=== PATIENT | female | born 1980 | race Caucasian/White ===

== ENCOUNTER 2016-10-01 13:44 | Inpatient (IN) | payer BC ==
[~2016-10-01] VITALS: Ht 165.1 cm; Wt 100.8 kg
[2016-10-01] MEDS ORDERED: OXYC-57 PO (14:20)
[2016-10-01] MEDS ORDERED: ONDANSETRON INJ 2 MG/ML 2 ML VIAL IV STA (14:20)
[2016-10-01] MEDS ORDERED: SODIUM CHLORIDE 0.9% 1000ML 1,000 ML IV STA ×2 (14:20)
[2016-10-01] MEDS ORDERED: MoRPHine SULFATE 4 MG/ML 1 ML CARP\\VIAL IV PRN (14:30)
[2016-10-01 14:57] LABS: BASO % 0.6 %; BASO ABS # 0.06 K/uL (0-0.2); COMPLETE YES; HEMATOCRIT 42.9 % (37-47); IG% 0.5 %; LYMPH % 26.9 %; LYMPH ABS # 2.51 K/uL (1.2-3.4); MEAN CELL VOLUME 87.7 fL (80-100); MEAN CORPUSCULAR HEMOGLOBIN 30.1 pg (25-34); MEAN CORPUSCULAR HGB CONC 34.3 g/dl (32-36); MEAN PLATELET VOLUME 9.6 fL (7.4-10.4); MONO % 5.3 %; NEUT % 64.7 %; PLATELET COUNT 326 K/uL (130-400); RED BLOOD COUNT 4.89 M/uL (4.2-5.4); WHITE BLOOD COUNT 9.32 K/uL (4.8-10.8)
--- NOTE | 2016-10-01 15:00 | DIAGNOSTIC IMAGING REPORT ---
CHEST ONE VIEW PORTABLE CLINICAL HISTORY: ABDOMINAL PAIN/GI pain COMPARISON STUDY: 04/01/2016 FINDINGS: The bones soft tissues and hemidiaphragms are normal. The cardiomediastinal silhouette is normal. The lungs are clear. The pulmonary vasculature is normal. IMPRESSION: Negative chest. Electronically signed by: Domo Peck M.D. 10/01/2016 2:59 PM Dictated Date/Time: 10/01/2016 2:59 PM
--- NOTE | 2016-10-01 15:01 | DIAGNOSTIC IMAGING REPORT ---
KUB CLINICAL HISTORY: ABDOMINAL PAIN/GI pain COMPARISON STUDY: No previous studies for comparison. FINDINGS: The soft tissues, psoas shadows, renal outlines and intestinal gas pattern appear normal. There is no evidence for bowel obstruction. No abnormal abdominal calcifications are seen. IMPRESSION: Normal study. Electronically signed by: Domo Peck M.D. 10/01/2016 3:00 PM Dictated Date/Time: 10/01/2016 2:59 PM
[2016-10-01 15:07] LABS: INR 0.9 (0.9-1.1)
[2016-10-01 15:26] LABS: ALT/SGPT 70 U/L (12-78); BLOOD UREA NITROGEN 5 mg/dl (7-18); BUN/CREATININE RATIO 6.7 (10-20); CALCIUM 8.7 mg/dl (8.5-10.1); CARBON DIOXIDE 25 mmol/L (21-32); CHLORIDE 104 mmol/L (98-107); CREATININE 0.76 mg/dl (0.60-1.20); GLUCOSE 98 mg/dl (70-99); POTASSIUM 3.6 mmol/L (3.5-5.1); SODIUM 139 mmol/L (136-145)
[2016-10-01 15:31] LABS: ALKALINE PHOSPHATASE 88 U/L (45-117); AST/SGOT 31 U/L (15-37)
[2016-10-01 15:39] LABS: URINE APPEARANCE CLEAR (CLEAR); URINE BILIRUBIN NEG (NEG); URINE COLOR YELLOW; URINE NITRITE NEG (NEG); UROBILINOGEN NEG (NEG)
[2016-10-01 15:41] LABS: MANUAL MICROSCOPIC REQUIRED? NO; REVIEW REQ? NO
[2016-10-01 15:44] LABS: PREG INTERNAL NEGATIVE QC NEG CLEAR BACKGROUND; PREG INTERNAL POSITIVE QC POS CONTROL LINE
--- NOTE | 2016-10-01 16:05 | DIAGNOSTIC IMAGING REPORT ---
Right upper quadrant ultrasound GALLBLADDER-ABD LIMITED CLINICAL HISTORY: recent carlos alberto 09/26. RUQ pain pain TECHNIQUE: Ultrasound COMPARISON STUDY: 04/01/2016 FINDINGS: Prior cholecystectomy. Normal caliber bile ducts. Common bile duct 4 mm. Mild fatty infiltration of liver. Conclusion right kidney negative. IMPRESSION: Mild fatty infiltration of liver. Otherwise negative study status post cholecystectomy Electronically signed by: Domo Peck M.D. 10/01/2016 4:03 PM Dictated Date/Time: 10/01/2016 4:02 PM
[2016-10-01 17:15] VITALS: O2SAT 100; Ht 165.1 cm; Wt 100.8 kg
--- NOTE | 2016-10-01 17:21 | EMERGENCY ROOM VISIT NOTE ---
History Report prepared by Victoriano: Dev Grimes Under the Supervision of: Dr. Pedro Ferguson D.O. First contact with patient: 14:14 Chief Complaint: RIB PAIN Stated Complaint: UPPER RT RIB PAIN, RECENT GALLBLADDER REMOVAL History of Present Illness The patient is a 36 year old female who presents to the Emergency Room with complaints of constant pain under her right ribs for the past five days. The pain is worse when she takes deep breaths and when she sits up. The pain radiates to her back. The pain is more abdominal than chest-related. She has never had pain like this before. The patient has been taking Oxycodone 5 mg for pain. She also complains of nausea. The patient denies any fevers, vomiting, chest pain, or shortness of breath. The patient had a cholecystectomy by Dr. Woodruff five days ago. The surgery went well. Her LNMP was last week, and the timing was normal. Source of History: patient Onset: five days Position: abdomen (rib right side) Timing: constant Modifying Factors (Worsening): breathing Associated Symptoms: No SOB, No chest pain, No fevers, No vomiting Review of Systems See HPI for pertinent positives & negatives. A total of 10 systems reviewed and were otherwise negative. Past Medical & Surgical Medical Problems: (1) Headache (2) Post-operative pain Surgical Problems: (1) S/P cholecystectomy Family History Patient reports no known family medical history. Social History Smoking Status: Never Smoker Alcohol Use: occasionally Marital Status: in relationship Housing Status: lives with significant other Occupation Status: employed Current/Historical Medications Scheduled PRN Oxycodone/Acetaminophen 5MG/325MG (Percocet 5MG/325MG), 1 TABLET PO Q6H PRN for Pain Allergies Coded Allergies: No Known Allergies (Unverified , 10/01/16) Physical Exam Vital Signs Date Time Temp Pulse Resp B/P Pulse Ox O2 Delivery O2 Flow Rate FiO2 10/01/16 16:32 70 16 111/70 100 Room Air 10/01/16 14:57 67 10/01/16 14:48 69 20 108/83 100 Room Air 10/01/16 13:51 36.9 79 22 146/78 98 Room Air Physical Exam GENERAL: Patient is awake, alert, very anxious and uncomfortable, appears to be in significant pain. EYES: The conjunctivae are clear. The pupils are round and reactive. EARS, NOSE, MOUTH AND THROAT: The nose is without any evidence of any deformity. Mucous membranes are moist tongue is midline NECK: The neck is nontender and supple. RESPIRATORY: Normal respiratory effort is noted there is no evidence of wheezing rhonchi or rales CARDIOVASCULAR: Regular rate and rhythm noted there no murmurs rubs or gallops normal S1 normal S2 GASTROINTESTINAL: The abdomen is moderately distended and diffusely tender, significant right upper quadrant tenderness with guarding noted. Bowel sounds are present in all quadrants. BACK: No midline tenderness or or step-off noted range of motion in flexion extension as well as rotation no signs of muscle spasm noted MUSCULOSKELETAL/EXTREMITIES: There is no evidence of gross deformity full range of motion is noted in the hips and shoulders SKIN: There is no obvious evidence of any rash. There are no petechiae, pallor or cyanosis noted. NEUROLOGIC: Patient is awake alert and oriented x3. Medical Decision & Procedures ER Provider Diagnostic Interpretation: X ray results and stated below per my interpretation and radiology interpretation. Other radiology results per my review and radiologist interpretation: KUB CLINICAL HISTORY: ABDOMINAL PAIN/GI pain COMPARISON STUDY: No previous studies for comparison. FINDINGS: The soft tissues, psoas shadows, renal outlines and intestinal gas pattern appear normal. There is no evidence for bowel obstruction. No abnormal abdominal calcifications are seen. IMPRESSION: Normal study. Electronically signed by: Domo Peck M.D. 10/01/2016 3:00 PM Dictated Date/Time: 10/01/2016 2:59 PM Right upper quadrant ultrasound GALLBLADDER-ABD LIMITED CLINICAL HISTORY: recent carlos alberto 09/26. RUQ pain pain TECHNIQUE: Ultrasound COMPARISON STUDY: 04/01/2016 FINDINGS: Prior cholecystectomy. Normal caliber bile ducts. Common bile duct 4 mm. Mild fatty infiltration of liver. Conclusion right kidney negative. IMPRESSION: Mild fatty infiltration of liver. Otherwise negative study status post cholecystectomy Electronically signed by: Dmoo Peck M.D. 10/01/2016 4:03 PM Dictated Date/Time: 10/01/2016 4:02 PM CHEST ONE VIEW PORTABLE CLINICAL HISTORY: ABDOMINAL PAIN/GI pain COMPARISON STUDY: 04/01/2016 FINDINGS: The bones soft tissues and hemidiaphragms are normal. The cardiomediastinal silhouette is normal. The lungs are clear. The pulmonary vasculature is normal. IMPRESSION: Negative chest. Electronically signed by: Domo Peck M.D. 10/01/2016 2:59 PM Dictated Date/Time: 10/01/2016 2:59 PM Laboratory Results 10/01/16 14:45 Red Blood Count 4.89, Mean Corpuscular Volume 87.7, Mean Corpuscular Hemoglobin 30.1, Mean Corpuscular Hemoglobin Concent 34.3, Mean Platelet Volume 9.6, Neutrophils (%) (Auto) 64.7, Lymphocytes (%) (Auto) 26.9, Monocytes (%) (Auto) 5.3, Eosinophils (%) (Auto) 2.0, Basophils (%) (Auto) 0.6, Neutrophils # (Auto) 6.02, Lymphocytes # (Auto) 2.51, Monocytes # (Auto) 0.49, Eosinophils # (Auto) 0.19, Basophils # (Auto) 0.06 10/01/16 14:45 Test 10/01/16 14:45 10/01/16 15:10 10/01/16 15:14 White Blood Count 9.32 K/uL (4.8-10.8) Red Blood Count 4.89 M/uL (4.2-5.4) Hemoglobin 14.7 g/dL (12.0-16.0) Hematocrit 42.9 % (37-47) Mean Corpuscular Volume 87.7 fL (80-100) Mean Corpuscular Hemoglobin 30.1 pg (25-34) Mean Corpuscular Hemoglobin Concent 34.3 g/dl (32-36) Platelet Count 326 K/uL (130-400) Mean Platelet Volume 9.6 fL (7.4-10.4) Neutrophils (%) (Auto) 64.7 % Lymphocytes (%) (Auto) 26.9 % Monocytes (%) (Auto) 5.3 % Eosinophils (%) (Auto) 2.0 % Basophils (%) (Auto) 0.6 % Neutrophils # (Auto) 6.02 K/uL (1.4-6.5) Lymphocytes # (Auto) 2.51 K/uL (1.2-3.4) Monocytes # (Auto) 0.49 K/uL (0.11-0.59) Eosinophils # (Auto) 0.19 K/uL (0-0.5) Basophils # (Auto) 0.06 K/uL (0-0.2) RDW Standard Deviation 40.2 fL (36.4-46.3) RDW Coefficient of Variation 12.6 % (11.5-14.5) Immature Granulocyte % (Auto) 0.5 % Immature Granulocyte # (Auto) 0.05 K/uL (0.00-0.02) Prothrombin Time 10.0 SECONDS (9.0-12.0) Prothromb Time International Ratio 0.9 (0.9-1.1) Activated Partial Thromboplast Time 25.1 SECONDS (21.0-31.0) Partial Thromboplastin Ratio 1.0 Anion Gap 10.0 mmol/L (3-11) Est Creatinine Clear Calc Drug Dose 121.5 ml/min Estimated GFR () 117.8 Estimated GFR (Non- 101.6 BUN/Creatinine Ratio 6.7 (10-20) Calcium Level 8.7 mg/dl (8.5-10.1) Total Bilirubin 0.5 mg/dl (0.2-1) Direct Bilirubin 0.1 mg/dl (0-0.2) Aspartate Amino Transf (AST/SGOT) 31 U/L (15-37) Alanine Aminotransferase (ALT/SGPT) 70 U/L (12-78) Alkaline Phosphatase 88 U/L (45-117) Troponin I < 0.015 ng/ml (0-0.045) Total Protein 8.3 gm/dl (6.4-8.2) Albumin 3.9 gm/dl (3.4-5.0) Lipase 153 U/L (73-393) Urine Color YELLOW Urine Appearance CLEAR (CLEAR) Urine pH 7.0 (4.5-7.5) Urine Specific [place] 1.000 (1.000-1.030) Urine Protein NEG (NEG) Urine Glucose (UA) NEG (NEG) Urine Ketones NEG (NEG) Urine Occult Blood NEG (NEG) Urine Nitrite NEG (NEG) Urine Bilirubin NEG (NEG) Urine Urobilinogen NEG (NEG) Urine Leukocyte Esterase NEG (NEG) Human Chorionic Gonadotropin, Qual NEG (NEG) Laboratory results per my review. Medications Administered Medications (Trade) Dose Ordered Sig/Wayne Route Start Time Stop Time Status Last Admin Dose Admin Sodium Chloride 1,000 ml @ 999 mls/hr Q1H1M STAT IV 10/01/16 14:20 10/01/16 15:20 DC 10/01/16 14:38 999 MLS/HR Sodium Chloride (Nss 1000ml) 1,000 ml @ 200 mls/hr Q5H STAT IV 10/01/16 14:20 10/01/16 18:21 DC 10/01/16 15:33 200 MLS/HR Morphine Sulfate (MoRPHine SULFATE INJ) 4 mg Q15M PRN IV 10/01/16 14:30 10/01/16 18:21 DC 10/01/16 14:39 4 MG Ondansetron HCl (Zofran Inj) 4 mg NOW STAT IV 10/01/16 14:20 10/01/16 14:22 DC 10/01/16 14:38 4 MG Hydromorphone HCl 1 mg 1 mg Q2H PRN IV 10/01/16 17:00 10/15/16 16:59 10/01/16 18:43 1 MG Lactated Ringer's (Lr 1000ml) 1,000 ml @ 80 mls/hr [id number] IV 10/01/16 17:00 10/31/16 16:59 10/01/16 18:43 80 MLS/HR ECG Indication: other (rib pain) Rate (beats per minute): 62 Rhythm: normal sinus Findings: no acute ischemic change, no ectopy ED Course 1419: The patient was evaluated in room B6. A complete history and physical examination were performed. 1420: Zofran 4 mg IV, NSS 1000 ml @ 200 mls/hr, NSS 1000 ml @ 999 mls/hr. 1430: Morphine Sulfate 4 mg IV. 1628: The patient is still in pain. 1630: Spoke with Dr. Horvath, Surgeon. The patient will be evaluated. 1645: Updated the patient. She is expecting Dr. Horvath. Medical Decision Etiologies such as appendicitis, diverticulitis, PUD, biliary pathology, UTI, pancreatitis, obstruction, mesenteric ischemia, aortic pathology, infections, inflammatory bowel disease, renal colic, as well as others were entertained. Nursing notes reviewed. The patient is a 36-year-old female who presented to the emergency department approximately one week status post laparoscopic cholecystectomy. She started having worsening right upper quadrant abdominal pain over the last 24 hours. She is not tachycardic or hypoxic. Her x-rays did not reveal any signs of free air. Ultrasound did not reveal any free fluid. Her LFTs were normal in her right blood supply was also normal. I'm unsure if this represents a benign postoperative pain or something more ominous such as a bile leak but I'm less suspicious of this given the patient's lack of findings on ultrasound. I discussed his case with the on-call general surgeon. He is agreed to evaluate the patient in the emergency department for further management and disposition. I discussed the patient's laboratory and radiographic studies with her. She was treated with IV fluids IV pain medicine IV antiemetics. On subsequent reevaluation she was feeling much better. She will require ischemia or possibly a CT to further evaluate her symptoms if she does not improve with conservative modalities. Consults Time Called: 1620 Consulting Physician: Dr. Horvath, Surgeon Returned Call: 1630 1630: Spoke with Dr. Horvath, Surgeon. The patient will be evaluated. Impression Primary Impression: Postoperative right upper quadrant abdominal pain Scribe Attestation The scribe's documentation has been prepared under my direction and personally reviewed by me in its entirety. I confirm that the note above accurately reflects all work, treatment, procedures, and medical decision making performed by me. Departure Information Dispostion Being Evaluated By Surgeon Referrals Archie Vaz MD (PCP) Patient Instructions My [facility]
[2016-10-01] MEDS ORDERED: IV FLUIDS COMPLETED PRN (18:00)
--- NOTE | 2016-10-01 18:19 | HISTORY & PHYSICAL EXAMINATION ---
DATE OF ADMISSION: 10/01/2016 SUMMARY: This is a 36-year-old female, that I was called about 2:00 this afternoon, who complains of severe pain in her right upper quadrant. She could not feel comfortable. The pain was pretty unrelenting and getting worse in the last 24 hours. The patient has had a laparoscopic cholecystectomy by Dr. Woodruff at [facility] on 09/26/2016. With that I asked the patient to come into the Emergency Room to be evaluated. She came into the emergency room where she was seen and on admission she had her vitals; 36.9, pulse 79, respirations 20, blood pressure 146/78 and O2 sats 98 on room air. The vitals were repeated and the last ones were similar with her blood pressure lower at 111/70. She was given some morphine for the pain and when I saw her at 5:00 and examined her, the pain was still quite considerable according to the patient. She had received 4 mg of morphine. She was evaluated in the Emergency Room and various tests. She underwent a KUB of the abdomen. Her KUB was pretty much unremarkable. She had a gallbladder ultrasound which was unremarkable. Chest x-ray was unremarkable. LABORATORY STUDIES: Showed a white count of 9.32, hemoglobin of 14.7, there is no left shift. The chemistries are all normal. With that, the pain was excruciating. Dr. Ferguson had seen the patient and was quite concerned; therefore, I came in to see her. As I walk in, her significant other is at the bedside. Her history is that the patient has had pain, generalized in different parts of her body, but at this point, in her right upper quadrant and her back is relatively new and it may have been accentuated with some oral intake of certain foods. Therefore, it led to the laparoscopic cholecystectomy for biliary dyskinesia. The ultrasound that was done about a year ago just showed a polyp on her gallbladder. I do not have the path report on that. The patient states that initially the pain from the gallbladder was better after surgery but then this pain is pretty much unrelenting and pretty much which she had before. PAST MEDICAL HISTORY: Positive for having some migraines. ALLERGIES: She has no known allergies. MEDICATIONS: She takes no medicines. PHYSICAL EXAMINATION: GENERAL: She is alert, in no acute distress, although uncomfortable with pain in her right upper quadrant. HEAD: Normocephalic. EYES: PERRLA. The sclerae is nonicteric. NECK: There is no cervical lymphadenopathy. HEART AND LUNGS: Clear. ABDOMEN: Trocar sites are healing fine. She has exquisite tenderness right lower rib margin of the rib cage subcostally bilaterally. There is no evidence of any hematoma of abdominal wall. There are no other abdominal findings. IMPRESSION: At this point, I suspect part of the problem that the patient may have is related to just some trauma to the abdominal wall from the laparoscopic procedure itself, but certainly it could be related to having a small bowel leak that unlikely given the ultrasound findings and the liver function studies. She is not happy to go home. She wants to have something done for the pain; therefore, I advised that she be admitted, which we will. We will increase her analgesics, give her some nonsteroidal hopefully to appease some of her pain and I will order a HIDA scan possibly for tomorrow. I did look at the operative findings; we were able to get it from [facility] and I see nothing unusual there. VELVET
[2016-10-01] MEDS: LACTATED RINGER'S 1000ML 1,000 ML IV SCH (18:43)
[2016-10-01] MEDS: HYDROmorphone INJ 1 MG/ML SYR IV PRN ×2 (18:43→22:35)
[2016-10-01 18:48] VITALS: BP 98/67; PULSE 71; TEMP 37; O2SAT 99
[2016-10-01 23:07] VITALS: BP 130/80; PULSE 83; TEMP 36.9; O2SAT 95
[2016-10-02] MEDS: ONDANSETRON INJ 2 MG/ML 2 ML VIAL IV PRN ×3 (00:25→12:53)
[2016-10-02] MEDS: LACTATED RINGER'S 1000ML 1,000 ML IV SCH ×2 (05:22→18:06)
[2016-10-02] MEDS: HYDROmorphone INJ 1 MG/ML SYR IV PRN ×4 (05:26→22:25)
[2016-10-02 07:55] VITALS: BP 114/77; PULSE 64; TEMP 36.9; O2SAT 93
[2016-10-02 08:00] VITALS: O2SAT 93
--- NOTE | 2016-10-02 09:42 | SURGERY PROGRESS NOTE ---
DATE: 10/02/2016 I admitted Purnima yesterday through the ER as a 23-hour observation for significant pain in right upper quadrant. All the workup had been negative except we are still waiting for a HIDA scan which will be done today, although the likelihood of a bile leak is very low. Her pain was pretty intolerable, so we admitted her for pain management, mostly from IV Dilaudid. Today, she was sleeping fine, but she states she still has a significant amount of pain in the right upper quadrant. Her last vital showed a temperature of 36.9, pulse 64, respirations 18, blood pressure 114/77. O2 sats 93 on room air. The abdomen is pretty much unchanged for yesterday, maybe a little bit more full in the right upper quadrant, but not significant. At this point, the patient cannot go home due to the intensity of this pain. I asked her to go home, but she would be back on some p.o. analgesics which brought her back to the hospital yesterday because that was not sufficient for pain. We will wait for a HIDA scan, but I recommend that she wait until tomorrow. She may need some pain management if the HIDA scan is negative and we have no other etiology of this pain except maybe post-surgical localized pain at the trocar sites and rib edge. ADDENDUM: The patient is very hard to read overall. We will transfer the care of the patient of Dr. Woodruff in the morning since he recently did surgery on her. Will change her status to full admit.
--- NOTE | 2016-10-02 10:08 | DIAGNOSTIC IMAGING REPORT ---
NUCLEAR MEDICINE HEPATOBILIARY SCAN HISTORY: Postoperative pain post op gallbladder r/o bile leak COMPARISON: None. TECHNIQUE: Immediately following the intravenous administration of 5.4 mCi Tc-99m Choletec, dynamic anterior abdominal imaging was performed. FINDINGS: Uniform hepatic tracer accumulation is shown. Prompt intrahepatic biliary excretion is seen. The common bile duct, and small bowel are all visualized by 10 minutes minutes. This appearance represents the normal sequence of biliary excretion. There is no evidence for isotope extravasation. Patient status post cholecystectomy IMPRESSION: Normal study post cholecystectomy. No evidence for obstruction or extravasation. Electronically signed by: Domo Peck M.D. 10/02/2016 10:07 AM Dictated Date/Time: 10/02/2016 10:05 AM
[2016-10-02] MEDS: IBUPROFEN 800 MG TAB PO PRN (12:50)
[2016-10-02 15:50] VITALS: BP 107/76; PULSE 69; TEMP 37.1; O2SAT 96
[2016-10-02 23:10] VITALS: BP 112/77; PULSE 56; TEMP 36.7; O2SAT 97
[2016-10-03] MEDS: LACTATED RINGER'S 1000ML 1,000 ML IV SCH (05:13)
[2016-10-03] MEDS: HYDROmorphone INJ 1 MG/ML SYR IV PRN ×2 (05:13→08:13)
[2016-10-03 07:37] VITALS: BP 106/66; PULSE 65; TEMP 36.8; O2SAT 96
--- NOTE | 2016-10-03 08:11 | SURGERY PROGRESS NOTE ---
DATE: 10/03/2016 Yesterday afternoon I had a conversation with the patient's mother after given permission by the patient to speak to her. I brought her up to date on what we were doing and also told her that the last test, the HIDA scan, did not show any leak which was what we anticipated. I also discussed with her that we will try to make her comfortable before sending her home and that Dr. Woodruff would be back today and he can take over the management. As I see Purnima today, she is resting comfortable in no acute distress. Her last vitals showed a temperature of 36.8, pulse 65, respirations 18, blood pressure 106/66, O2 sats 96 on room air. She had a bowel movement. Her urine output is excellent. The abdomen right upper quadrant exquisite tenderness she had at the rib cage area is significantly improved, although subjectively she still says she had a moderate amount of pain. The rest of the abdomen is negative. With this, I will turn over the care to Dr. Woodruff today. We will be in contact with him and he can seek further management for her discomfort. This was discussed with the patient.
[2016-10-03] MEDS: IBUPROFEN 800 MG TAB PO PRN (08:14)
[2016-10-03] MEDS ORDERED: OXYC-57 PO (08:23)
--- NOTE | 2016-10-03 08:26 | Discharge Instructions ---
Discharge Instructions Admission Reason for Admission: Post-Operative Pain Discharge Discharge Diagnosis / Problem: post-op pain Discharge Goals Goal(s): Decrease discomfort Activity Recommendations Activity Limitations: per Instructions/Follow-up section Lifting Limitations: no more than 25 pounds Exercise/Sports Limitations: as tolerated May Resume Sexual Activity: when tolerated Shower/Bathe: no limitations Driving or Machine Use: no limitations . Current Hospital Diet Patient's current hospital diet: Regular Diet Discharge Diet Recommended Diet: Regular Diet Pending Studies Studies pending at discharge: no Work Instructions Return To Work: after follow-up School Instructions Return To School: after follow-up Medical Emergencies . Who to Call and When: Medical Emergencies: If at any time you feel your situation is an emergency, please call 911 immediately. . Non-Emergent Contact Non-Emergency issues call your: Primary Care Provider, Surgeon Call Non-Emergent contact if: temperature is above 101.5, your pain is worsening, wound has increased pain . "Provider Documentation" section prepared by Ok Woodruff. VTE Core Measure Inpt VTE Proph given/why not?: SCD[facility] [place] Drug Monitoring Program Search Results: patient reviewed within database
--- NOTE | 2016-10-03 08:40 | DISCHARGE SUMMARY ---
DATE OF DISCHARGE: 10/03/16 DIAGNOSES: 1. Biliary dyskinesia status post laparoscopic cholecystectomy. 2. Postoperative pain. ATTENDING PHYSICIAN: Dr. Ok Woodruff. HISTORY OF PRESENT ILLNESS: This is a 36-year-old female who underwent laparoscopic cholecystectomy approximately 6 days ago. She was seen in the ER yesterday complaining of pain out of proportion to her procedure. She was evaluated, was admitted for further workup for postoperative pain. HOSPITAL COURSE: The patient was admitted, her laboratory results were all within normal limits. White count was normal. LFTs were all normal. She complained of pain mainly in the right upper quadrant. Ultrasound was done, was normal. A HIDA scan was done and showed no leak and was normal. KUB and chest x-ray were also normal. She was begun on a diet which she tolerated. She was afebrile. Vital signs all stayed stable. She required IV pain control but this began to improve and she was discharged home on hospital day #2. DISCHARGE MEDICATIONS: Percocet 5/325 one tablet p.o. q. 4 hours p.r.n. pain, #20, no refills. DIET: Regular as tolerated. ACTIVITIES: No strenuous activity. Follow up 2 to 3 days in my office.
[2016-10-03 09:49] VITALS: BP 106/66; PULSE 65; TEMP 36.8; O2SAT 96
== END 2016-10-03 10:00 | disposition home or self-care (01) | DRG 446 ==
LOC: ENRESERVTM → ENRESERVDT → C.EDB 13:45 → C.MSN 17:03 → OBSVTOIN 10-02 08:37
PROVIDERS: ADMIT Surgery; ATTEND Surgery
DX: K91.5 Postcholecystectomy syndrome (principal); Y83.6 Removal of other organ (partial) (total) as the cause of abnormal reaction of the patient, or of later complication, without mention of misadventure at the time of the procedure; G89.18 Other acute postprocedural pain